=== PATIENT | male | born 1950 | race Caucasian/White ===

== ENCOUNTER → 2017-05-02 | Day surgery (SDC) | payer OTHER ==
[~2017-05-02] VITALS: Ht 174 cm; Wt 100.5 kg
[~2017-05-02] MED LIST: ACETAMINOPHEN 325 MG TAB PO PRN; ALLO300T2 PO; ASPI81TA28 PO; ATOR-24 PO; ATROPINE SULFATE 0.1 MG/ML 5ML SYR IV PRN; BUPRTAB51 PO; DC ALL ANTICOAGULANTS ONE; FURO-85 PO; INDO-24 PO; LISI40TA PO; MELO7.5T5 PO; METF-384 PO; MIDAZOLAM HCL 1 MG/ML 2ML VIAL ONE; ONDANSETRON INJ 2 MG/ML 2 ML VIAL IV PRN; SODIUM CHLORIDE 0.9% 1000ML 1,000 ML IV SCH; SODIUM CHLORIDE 0.9% 1000ML 250 ML IV PRN; VNTHFA/IN INH
[2017-05-02 10:53] VITALS: BP 169/81; PULSE 52; TEMP 36.5; O2SAT 98; Ht 174 cm; Wt 100.5 kg
--- NOTE | 2017-05-02 12:52 | History & Physical Bridge Note ---
H&P Re-Evaluation Bridge Note: I have examined the patient, reviewed the History & Physical and in the interval since the performance of the History & Physical I have noted the following changes of clinical significance: No changes noted
--- NOTE | 2017-05-02 12:58 | Cardiac Catheterization ---
Procedure Note Procedure Date May 02, 2017. Pre-Procedure Diagnosis Valvular Disease, Cardiomyopathy AUC Score 9 Post-Procedure Diagnosis Normal Coronary Arteries, Decreased LV Systolic Function, Normal Intracardiac Pressures Procedure(s) Performed Coronary Angiography, Left Heart Cath, Right Heart Cath, LV Angiography, Aortography Research Nutritionist Dr. Cool Synthetic Department Supervisor(s) None Estimated Blood Loss None Summary of Findings Severe AI Hemodynamics Rest Ao: 157/63 Final Ao: 171/59 LV: 156/13 RA: 7 RV: 26/3 PA: 26/9 PW: 15 Recommendations valve replacement Specimens None Radiation Exposure (mGy) 1787 Contrast (mls) 182 Fluids (cc crystalloids) 60 Procedural Complication(s) None Disposition [facility] [facility] [employer] Holding/Recovery ACC Data Cardiac Status Clinical evaluation leading to the procedure CAD Presntation: No Sxs, no angina Anginal Classification: No symptoms Heart Failure: No Cardiogenic Shock w/in 24Hrs: No Cardiac Arrest w/in 24Hrs: No Imaging studies past 6 months: Yes Stress studies past 6 months: No Coronary Anatomy Dominant: Right Left Main (% Stenosis): Normal LAD (% Stenosis): Normal Circumflex (% Stenosis): Normal RCA (% Stenosis): Normal Left Ventricular Angiography EF (%): 40 Mitral Regurgitation: None Aortography Aortic Regurgitation: 4+ Diagnostic Status: Elective Closure Device Percutaneous Entry Location: Femoral Closure Device: Mynx Recommendations: valve replacement, management recommendations (repair of aortic root and ascending aorta)
--- NOTE | 2017-05-02 13:00 | Discharge Instructions ---
Discharge Instructions Procedure Procedure Date: May 02, 2017. Reason for Visit: Aortic Valve Insufficiency *Dr Cool To Do*. Discharge Discharge Date: May 02, 2017. Discharge Diagnosis: same Last Recorded Wt (Kilograms): 100.5 Anesthesia Post Anesthesia Instructions: If you have had General Anesthesia or IV Sedation: * Do not drive today. * Resume driving when surgeon permits. * Do not make important decisions or sign legal documents today. * Call surgeon for: 1. Temperature elevations greater than 101 degrees F. 2. Uncontrollable pain. 3. Excessive bleeding. 4. Persistent nausea and vomiting. 5. Medication intolerance (nausea, vomiting or rash). * For nausea and vomiting use only clear liquids such as: tea, soda, bouillon until nausea subsides, then gradually increase diet as tolerated. * If you have any concerns or questions, call your surgeon's office. If physician is unavailable and it is an emergency, call 911 or go to the nearest emergency room. Instructions Activity Recommendations: limitations Recommended Home Diet: resume previous diet Allergies: Coded Allergies: No Known Allergies (Unverified , 05/02/17) Provider Instructions ACTIVITY RECOMMENDATIONS: It is common to feel weak and fatigue for a few days. * Do not drive or operate any motorized equipment for the next three days. * Limit stair usage (2 or 3 trips a day only) for the next three days. * Do not lift anything heavier than 10 pounds for the next three days. * Do not engage in vigorous exercise or any sports for the next five days. * You may shower the day after your procedure, but do not immerse the area for three days. Cleanse the site gently with soap and water. SPECIAL CARE INSTRUCTIONS: * You may replace the pressure dressing or band-aid the morning after the procedure. * After your procedure, it is normal to have a small bruise or small lump at the site. Examine your site daily for any change in the bruise or lump, redness, swelling, drainage or numbness. Notify your doctor if any change. BLEEDING: * If there is a small amount of bleeding at the site, lie down and apply firm pressure with a clean cloth for ten minutes. When the bleeding stops, lie quietly keeping the procedure limb straight for six hours. Notify your doctor as soon as possible. * If the bleeding does not stop after ten minutes or if there is a large amount of bleeding or spurting, call 911 immediately. Continue to lie down and hold firm pressure until help arrives. SKIN IRRITATION: * You may experience some redness and/or swelling in the area where radiation was administered. If any skin irritation occurs, please contact your family physician. FOLLOW UP VISIT: Keep any scheduled doctor appointments. Follow Up Merlene Quinteros Recommendations: Call your doctor if: * Temperature above 101 degrees * Pain not relieved by pain medicine ordered * There is increased drainage or redness from any incision * You have any unanswered questions or concerns. Your Doctors Instructions noted above were prepared by provider Adolfo Cool. Patient Signature Section: Patient Instructions Signature Page Kirk Kulkarni Patient (or Guardian) Signature/Date: I have read and understand the instructions given to me by my caregivers. Caregiver/RN/Doctor Signature/Date: The above-named patient and/or guardian has received patient instructions on this date. + Original Patient Signature Page (only) stays with chart. Please make copy for patient.
--- NOTE | 2017-05-02 13:02 | Procedure Note ---
Pre-Mod Sedation Assessment General Date of Moderate Sedation: May 02, 2017. 12:13 PM Vital Signs: Vital Signs Past 12 Hours Date Time Temp Pulse Resp B/P (MAP) Pulse Ox O2 Delivery O2 Flow Rate FiO2 05/02/17 12:40 60 20 163/79 96 Room Air 05/02/17 10:53 36.5 52 16 169/81 98 Room Air Review Cardiovascular: regular rate, rhythm Abdomen: normal bowel sounds, non tender, soft Lungs: chest non-tender, lungs clear Airway Class: I Pre-Sedation Airway Assessment Oral Cavity: Dentures Able to Visualize Vocal Cords: No Short Thick Neck: No Hx of Sleep Apnea: Yes Smoking Status: Never Smoker Mallampati Classification: Class I ASA Classification: Class I Procedure Planning Contraindications-for Mod Sed: None Yes Notes The planned sedation has been discussed with the patient and consent obtained. I have identified the patient, determined the appropriateness of sedation and have assessed the patient immediately prior to the procedure. All medicine(s) and interventions are by my order.
--- NOTE | 2017-05-02 13:03 | Procedure Note ---
Post-Mod Sedation Assessment General Date of Moderate Sedation May 02, 2017. 12:39 PM Vital Signs: Vital Signs Past 12 Hours Date Time Temp Pulse Resp B/P (MAP) Pulse Ox O2 Delivery O2 Flow Rate FiO2 05/02/17 12:40 60 20 163/79 96 Room Air 05/02/17 10:53 36.5 52 16 169/81 98 Room Air Review - Discharge Criteria Vital Signs Stable: Yes Alert/Oriented/Conversant: Yes Returned to Baseline Mental St: Yes Nausea Absent/Minimal: Yes Pain/Discomfort/Absent/Minimal: Yes Normal/Baseline Respirations: Yes Active Bleeding?: No Pt Received D/C Instructions: Yes Prescriptions Given: None Specific Proced. D/C Criteria Distal Pulses Present (Cardiac: Yes Groin site assessed-Card Cath: Yes Voided Prior To Discharge: Yes Discharged Patients Adult Escort/Transportation: Yes
--- NOTE | 2017-05-02 13:12 | Cardiac Catheterization ---
Procedure Note Procedure Date May 02, 2017. Pre-Procedure Diagnosis Valvular Disease, Cardiomyopathy AUC Score 9 Post-Procedure Diagnosis Normal Coronary Arteries, Decreased LV Systolic Function, Elevated Intracardiac Pressures Procedure(s) Performed Coronary Angiography, Left Heart Cath, Right Heart Cath, LV Angiography, Aortography Hazardous Materials Waste Technician Dr. Cool Bacteriologist Medical(s) None Estimated Blood Loss None Medication(s) Versed, Lidocaine 1% Summary of Findings Severe AI Hemodynamics Rest Ao: 157/63 Final Ao: 171/59 LV: 156/26 RA: 9 RV: 51/9 PA: 48/21 PW: 32 Recommendations valve replacement Specimens None Radiation Exposure (mGy) 1787 Contrast (mls) 182 Fluids (cc crystalloids) 60 Disposition Collections Associate Holding/Recovery ACC Data Cardiac Status Clinical evaluation leading to the procedure CAD Presntation: No Sxs, no angina Anginal Classification: No symptoms Heart Failure: No Cardiogenic Shock w/in 24Hrs: No Cardiac Arrest w/in 24Hrs: No Imaging studies past 6 months: Yes Stress studies past 6 months: No Coronary Anatomy Dominant: Right Left Main (% Stenosis): Normal LAD (% Stenosis): Normal Circumflex (% Stenosis): Normal RCA (% Stenosis): Normal Left Ventricular Angiography EF (%): 40 Mitral Regurgitation: None Aortography Aortic Regurgitation: 4+ Diagnostic Status: Elective Closure Device Percutaneous Entry Location: Femoral Closure Device: Mynx Recommendations: valve replacement
--- NOTE | 2017-05-02 13:55 | CARDIAC CATH REPORT ---
PROCEDURES: 1. Left heart catheterization. 2. Right heart catheterization. 3. Coronary angiography. 4. Left ventriculography. 5. Aortography HISTORY: The patient is a 66-year-old male with a history of severe aortic insufficiency. PROCEDURE SUMMARY: After informed consent was obtained, the patient was taken to the cardiac catheterization lab where he was prepped and draped in the usual manner. A right transfemoral approach was utilized with a retrograde Seldinger technique. Preformed 5-Grenadian diagnostic catheter was utilized for the coronary angiograms. A 5-Grenadian pigtail catheter was utilized for the left ventriculogram and aortogram. A Bristol-Leilani catheter was utilized for the right heart pressures and cardiac outputs. Following the procedure, the patient had the arterial site closed with a Mynx device and then was returned to the holding area of the laborer wrecking and salvaging in stable condition. HEMODYNAMIC DATA: Right atrial pressure is a mean of 9 mmHg, right ventricular pressure is 51/9 mmHg, pulmonary capillary wedge pressure is a mean of 32 mmHg, pulmonary artery pressure is 47/17 mmHg, left ventricular pressure is 156/13 mmHg, pulmonary capillary wedge pressure is a mean of 38 mmHg, aortic pressure is 157/63 mmHg. Cardiac output by thermal dilution is 7.7 liters per minute. LEFT VENTRICULOGRAM: The left ventricle is dilated with global hypokinesis. The estimated left ventricular ejection fraction is around 40%. The mitral valve is competent. AORTOGRAPHY: Injections into the aorta reveal dilatation of the aortic root and ascending aorta. 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 There is severe aortic insufficiency. CORONARY ANGIOGRAPHY: Selective injections of the left coronary artery revealed the left main trunk to be smooth in appearance, widely patent, and within normal limits. There is a large ramus branch from the left main trunk which is widely patent. The LAD extends to the apex of the heart. The LAD gives off a single diagonal branch. The LAD system is smooth in appearance, widely patent, and within normal limits. The left circumflex artery consists of 2 small to medium sized marginal branches. The left circumflex artery is smooth in appearance, widely patent, and within normal limits. Selective injections of the right coronary artery reveal to be large and dominant. The right coronary artery is smooth in appearance, widely patent, and within normal limits. SUMMARY: The patient has normal coronary arteries. There is severe aortic insufficiency with dilatation of the aortic root and ascending aorta. Left ventricular systolic function is reduced with an estimated left ventricular ejection around 40%. Intracardiac pressures and right heart pressures are mild to moderately elevated. RECOMMENDATIONS: The patient will be reviewed by cardiothoracic surgery regarding aortic root repair and aortic valve replacement.
[2017-05-02 16:30] VITALS: BP 149/71; PULSE 66; O2SAT 97
== END | disposition home or self-care (01) ==
LOC: C.CATH 10:04
PROVIDERS: ATTEND Thoracic Surgery (Cardiothoracic Vascular Surgery)
DX: I42.9 Cardiomyopathy, unspecified (principal); I38 Endocarditis, valve unspecified; I35.1 Nonrheumatic aortic (valve) insufficiency; E66.9 Obesity, unspecified; I25.10 Atherosclerotic heart disease of native coronary artery without angina pectoris; I10 Essential (primary) hypertension; E11.9 Type 2 diabetes mellitus without complications; Z79.82 Long term (current) use of aspirin